=== PATIENT | female | born 1970 | race Asian ===

== ENCOUNTER 2020-03-16 13:29 | Inpatient (IN) | payer BC ==
[~2020-03-16] VITALS: Ht 152.4 cm; Wt 43.5 kg
[2020-03-16 13:45] VITALS: BP 153/83
[2020-03-16] MEDS ORDERED: HYDROmorphone 1mg/ml Carpuject IVP ONE (13:45)
[2020-03-16] MEDS ORDERED: Omnipaque-300 100ml vial INJ PRN (13:45)
--- NOTE | 2020-03-16 14:22 | Emergency Room Report ---
History of Present Illness General Chief Complaint: Abdominal Pain Source: Patient (Ender Hanna MD) Present Illness HPI Disclaimer: Please note that this report is being documented using [employer] technology. This can lead to erroneous entry secondary to incorrect interpr etation by the dictating instrument. HPI: 49-year-old male with a history of fibroids recent embolization presents for evaluation of constipation and abdominal pain. Patient underwent a uterine artery embolization on the right side [address] Manzanares. Decreased bowel movements and increased nausea and abdominal pain. She tried milk of magnesia but no effect. Denies fever or chills. Denies dysuria. Sent in by surgery for evaluation and admission. PMH: Uterine fibroids PSH: Uterine artery embolization Allergies: Reviewed Social Hx: Reviewed (Ender Hanna MD) Allergies: Coded Allergies: No Known Allergies (Unverified , 03/16/20) COVID-19 Screening Contact w/high risk pt: No Experienced COVID-19 symptoms?: No COVID-19 Testing performed RELOCATION MANAGER: No (Ender Hanna MD) Nursing Documentation-PM Past Medical History: No Stated History (Ender Hanna MD) Review of Systems All Other Systems: negative except mentioned in HPI (Ender Hanna MD) Physical Exam Vital Signs Date Time Temp Pulse Resp B/P (MAP) Pulse Ox O2 Delivery O2 Flow Rate FiO2 03/16/20 13:41 98.2 86 18 153/83 (106) 99 Room Air General: Awake and alert, appears uncomfortable HEENT: NC/AT. EOMI. Cardiovascular: RRR. S1 and S2 normal. No murmur appreciated Resp: Normal work of breathing. No cough, wheezing or crackles appreciated Abdomen: Abdomen is soft, nondistended. Tender to palpation in the lower abdomen bilaterally.. Skin: Intact. No abrasions, laceration or rash over the exposed skin MSK: Normal tone and bulk. Moving all extremities. No obvious deformity. Neuro: Awake and alert. Mentating appropriately. (Ender Hanna MD) Medical Decision Making Diagnostic Impression: Primary Impression: Post-op pain Additional Impression: Fibroid uterus Qualified Codes: D25.9 - Leiomyoma of uterus, unspecified ER Course Is a 49-year-old female presenting for evaluation of abdominal pain and constipation 3 days after uterine artery embolization. Seen for postop complication, constipation, ileus among others. Started IV fluids, kept n.p.o., given antiemetics and pain medication. Awaiting lab results and CT of the abdomen and pelvis per surgery recommendations. Patient will be admitted to Dr. Garsia at the request of her surgeon. (Ender Hanna MD) ER Course Please see above note. Lab results reviewed as well as CAT scan. Discussed results with Dr. Manzanares. Patient is admitted to the hospital. Laboratory Tests Test 03/16/20 14:45 White Blood Count 11.1 K/UL (4.8-10.8) H Red Blood Count 4.80 M/UL (4.20-5.40) Hemoglobin 13.3 G/DL (12.0-16.0) Hematocrit 38.6 % (37.0-47.0) Mean Corpuscular Volume 80 FL (80-99) Mean Corpuscular Hemoglobin 27.6 PG (27.0-31.0) Mean Corpuscular Hemoglobin Concent 34.3 G/DL (32.0-36.0) Red Cell Distribution Width 16.4 % (11.6-14.8) H Platelet Count 174 K/UL (150-450) Mean Platelet Volume 9.1 FL (6.5-10.1) Neutrophils (%) (Auto) 86.5 % (45.0-75.0) H Lymphocytes (%) (Auto) 3.2 % (20.0-45.0) L Monocytes (%) (Auto) 9.2 % (1.0-10.0) Eosinophils (%) (Auto) 0.1 % (0.0-3.0) Basophils (%) (Auto) 0.9 % (0.0-2.0) Sodium Level 138 MMOL/L (136-145) Potassium Level 4.1 MMOL/L (3.5-5.1) Chloride Level 99 MMOL/L (98-107) Carbon Dioxide Level 30 MMOL/L (21-32) Anion Gap 9 mmol/L (5-15) Blood Urea Nitrogen 8 mg/dL (7-18) Creatinine 0.7 MG/DL (0.55-1.30) Estimated Glomerular Filtration Rate > 60 mL/min (>60) Glucose Level 119 MG/DL (74-106) H Calcium Level 8.9 MG/DL (8.5-10.1) Total Bilirubin 1.2 MG/DL (0.2-1.0) H Direct Bilirubin 0.3 MG/DL (0.0-0.3) Aspartate Amino Transferase (AST) 32 U/L (15-37) Alanine Aminotransferase (ALT) 34 U/L (12-78) Alkaline Phosphatase 53 U/L (46-116) Total Protein 8.3 G/DL (6.4-8.2) H Albumin 3.8 G/DL (3.4-5.0) Globulin 4.5 g/dL Albumin/Globulin Ratio 0.8 (1.0-2.7) L Lipase 107 U/L (73-393) (Abdifatah Brush MD) CT/MRI/US Diagnostic Results CT/MRI/US Diagnostic Results : Imaging Test Ordered: abd/pelvis Impression Impression: Borderline dilated markedly diffusely fluid filled colon and distal ileum, without evidence of downstream obstructive pathology. Most likely functional in nature and possibly related to recent procedure; no evidence of obstructive pathology is demonstrated. Extensive fluid may indicate diarrheal illness Markedly enlarged fibroid uterus. Opacified dominant fibroid, necrotic appearing other fibroids are consistent with stated clinical history of uterine fibroid embolization Bilateral breast implants. Serpiginous opacities in the right implant suggest intracapsular rupture Other findings as noted, including posterior pulmonary dependent atelectatic changes, focal fatty change in the liver, hepatic cysts (Abdifatah Brush MD) Last Vital Signs Date Time Temp Pulse Resp B/P (MAP) Pulse Ox O2 Delivery O2 Flow Rate FiO2 03/16/20 13:41 98.2 86 18 153/83 (106) 99 Room Air (Ender Hanna MD) Last Vital Signs Date Time Temp Pulse Resp B/P (MAP) Pulse Ox O2 Delivery O2 Flow Rate FiO2 03/16/20 18:20 Room Air 03/16/20 17:30 98.2 70 18 124/70 99 Status: improved (Abdifatah Brush MD) Disposition: ADMITTED INPATIENT Condition: Stable Ender Hanna MD Mar 16, 2020 14:22 Abdifatah Brush MD Mar 16, 2020 17:21
[2020-03-16 15:00] LABS: HEMATOCRIT 38.6 % (37.0-47.0); HEMOGLOBIN 13.3 G/DL (12.0-16.0); LYMPHOCYTES % (AUTO) 3.2 % (20.0-45.0); MEAN CORPUSCULAR VOLUME 80 FL (80-99); MONOCYTES % (AUTO) 9.2 % (1.0-10.0); NEUTROPHILS % (AUTO) 86.5 % (45.0-75.0); PLATELET COUNT 174 K/UL (150-450); RED CELL DISTRIBUTION WIDTH 16.4 % (11.6-14.8); WHITE BLOOD COUNT 11.1 K/UL (4.8-10.8)
[2020-03-16 15:01] LABS: BASOPHILS % (AUTO) 0.9 % (0.0-2.0); EOSINOPHILS % (AUTO) 0.1 % (0.0-3.0)
[2020-03-16 15:08] LABS: ANION GAP 9 mmol/L (5-15); BLOOD UREA NITROGEN 8 mg/dL (7-18); CALCIUM 8.9 MG/DL (8.5-10.1); CARBON DIOXIDE 30 MMOL/L (21-32); CHLORIDE 99 MMOL/L (98-107); CREATININE 0.7 MG/DL (0.55-1.30); POTASSIUM 4.1 MMOL/L (3.5-5.1); SODIUM 138 MMOL/L (136-145)
[2020-03-16 15:17] LABS: ALANINE AMINOTRANSFERASE 34 U/L (12-78); ALBUMIN 3.8 G/DL (3.4-5.0); ALBUMIN/GLOBULIN RATIO 0.8 (1.0-2.7); ALKALINE PHOSPHATASE 53 U/L (46-116); ASPARTATE AMINO TRANSFERASE 32 U/L (15-37); BILIRUBIN,TOTAL 1.2 MG/DL (0.2-1.0)
[2020-03-16 15:19] LABS: BILIRUBIN,DIRECT 0.3 MG/DL (0.0-0.3)
--- NOTE | 2020-03-16 16:43 | Diagnostic Imaging Report ---
Clinical Indication: Abdominal pain, status post uterine fibroid embolization procedure Technique: No oral contrast utilized, per emergency room physician request IV administration nonionic contrast. Venous phase spiral acquisition obtained through the abdomen and pelvis. Multiplanar reconstructions were generated. Total dose length product 162 mGycm. CTDIvol(s) 3 mGy. Dose reduction achieved using automated exposure control Comparison: none Findings: Lack of enteric contrast limits assessment of the GI tract. The colon is mildly distended, diffusely fluid-filled; this appearance extends all the way to the rectum. The wall does not appear to be thickened. The distal and terminal ileum are also mildly dilated and fluid-filled; remainder of the small bowel is normal in caliber. The distal esophagus, stomach, duodenum are unremarkable. No free or loculated intraperitoneal gas or fluid is evident. The uterus is enlarged, demonstrates multiple fibroids, largest measuring 7.9 x 5.7 cm. The largest is somewhat hyperattenuating centrally, likely indicating retained contrast from the embolization procedure. Most of the rest are hypoattenuating. The liver demonstrates multiple cysts. There is some focal fatty change in the usual location adjacent to the falciform ligament. The gallbladder, bile ducts, pancreas, spleen, adrenals, kidneys are all unremarkable. No retroperitoneal or mesenteric mass or adenopathy. Included lung bases demonstrate posterior dependent atelectatic changes. There are bilateral breast implants. Serpiginous opacities are seen within the right breast implants. The bones are unremarkable. Impression: Borderline dilated markedly diffusely fluid filled colon and distal ileum, without evidence of downstream obstructive pathology. Most likely functional in nature and possibly related to recent procedure; no evidence of obstructive pathology is demonstrated. Extensive fluid may indicate diarrheal illness Markedly enlarged fibroid uterus. Opacified dominant fibroid, necrotic appearing other fibroids are consistent with stated clinical history of uterine fibroid embolization Bilateral breast implants. Serpiginous opacities in the right implant suggest intracapsular rupture Other findings as noted, including posterior pulmonary dependent atelectatic changes, focal fatty change in the liver, hepatic cysts The CT scanner at [facility] is accredited by the [place] [employer] and the scans are performed using protocols designed to limit radiation exposure to as low as reasonably achievable to attain images of sufficient resolution adequate for diagnostic evaluation.
[2020-03-16 17:30] VITALS: BP 132/75
--- NOTE | 2020-03-16 17:41 | General Surgery Progress Note ---
General Surgery-Progress Note Subjective Day of Surgery: march 14 Procedure Performed uterine fibroid embolization Symptoms: pain same, voiding well Objective Last 24 Hour Vital Signs Date Time Temp Pulse Resp B/P (MAP) Pulse Ox O2 Delivery O2 Flow Rate FiO2 03/16/20 17:30 98.0 74 18 132/75 99 Room Air 03/16/20 14:40 98.3 03/16/20 13:45 86 18 Room Air 03/16/20 13:45 98.2 18 153/83 99 Room Air 03/16/20 13:41 98.2 86 18 153/83 (106) 99 Room Air Dressing: dry Wound: clean Drains: none Cardiovascular: RSR Respiratory: clear Abdomen: soft, flat, scaphoid, tenderness, decreased bowel sounds Extremities: no edema, no tenderness, no cyanosis Laboratory Tests Test 03/16/20 14:45 White Blood Count 11.1 K/UL (4.8-10.8) H Red Blood Count 4.80 M/UL (4.20-5.40) Hemoglobin 13.3 G/DL (12.0-16.0) Hematocrit 38.6 % (37.0-47.0) Mean Corpuscular Volume 80 FL (80-99) Mean Corpuscular Hemoglobin 27.6 PG (27.0-31.0) Mean Corpuscular Hemoglobin Concent 34.3 G/DL (32.0-36.0) Red Cell Distribution Width 16.4 % (11.6-14.8) H Platelet Count 174 K/UL (150-450) Mean Platelet Volume 9.1 FL (6.5-10.1) Neutrophils (%) (Auto) 86.5 % (45.0-75.0) H Lymphocytes (%) (Auto) 3.2 % (20.0-45.0) L Monocytes (%) (Auto) 9.2 % (1.0-10.0) Eosinophils (%) (Auto) 0.1 % (0.0-3.0) Basophils (%) (Auto) 0.9 % (0.0-2.0) Sodium Level 138 MMOL/L (136-145) Potassium Level 4.1 MMOL/L (3.5-5.1) Chloride Level 99 MMOL/L (98-107) Carbon Dioxide Level 30 MMOL/L (21-32) Anion Gap 9 mmol/L (5-15) Blood Urea Nitrogen 8 mg/dL (7-18) Creatinine 0.7 MG/DL (0.55-1.30) Estimat Glomerular Filtration Rate > 60 mL/min (>60) Glucose Level 119 MG/DL (74-106) H Calcium Level 8.9 MG/DL (8.5-10.1) Total Bilirubin 1.2 MG/DL (0.2-1.0) H Direct Bilirubin 0.3 MG/DL (0.0-0.3) Aspartate Amino Transf (AST/SGOT) 32 U/L (15-37) Alanine Aminotransferase (ALT/SGPT) 34 U/L (12-78) Alkaline Phosphatase 53 U/L (46-116) Total Protein 8.3 G/DL (6.4-8.2) H Albumin 3.8 G/DL (3.4-5.0) Globulin 4.5 g/dL Albumin/Globulin Ratio 0.8 (1.0-2.7) L Lipase 107 U/L (73-393) Imaging no abscess, no bowel thickening, much stool in colon. Plan Additional Comments GI and IM consults to manage constipation Paulino Manzanares MD Mar 16, 2020 17:41
[2020-03-16] MEDS ORDERED: HYDROmorphone 1mg/ml Carpuject IVP PRN (18:15)
[2020-03-16 20:00] VITALS: BP 140/89
[2020-03-16] MEDS ORDERED: Potassium Chloride 30 MEQ in Dextrose 5%/Lactated Ringer's 1,000 ML IV SCH (20:00)
[2020-03-16] MEDS ORDERED: TRAMADOL HCL50 MG ORAL (20:28)
[2020-03-16] MEDS ORDERED: ZOFRAN ODT8 MG ORAL (20:28)
[2020-03-16] MEDS ORDERED: AUGMENTIN 875-1 EAC1 ORAL (20:28)
[2020-03-16] MEDS ORDERED: PERCOCET 5-3251 EACH ORAL (20:28)
[2020-03-16] MEDS: ceFAZolin sod 1 GM in D5W 55 ML IVPB SCH (21:50)
[2020-03-17] VITALS: BP 115/77
[2020-03-17 04:00] VITALS: BP 110/74
[2020-03-17 06:14] LABS: BASOPHILS % (AUTO) 0.7 % (0.0-2.0); EOSINOPHILS % (AUTO) 0.4 % (0.0-3.0); HEMATOCRIT 33.7 % (37.0-47.0); HEMOGLOBIN 11.2 G/DL (12.0-16.0); LYMPHOCYTES % (AUTO) 5.6 % (20.0-45.0); MEAN CORPUSCULAR VOLUME 85 FL (80-99); MONOCYTES % (AUTO) 9.1 % (1.0-10.0); NEUTROPHILS % (AUTO) 84.1 % (45.0-75.0); PLATELET COUNT 141 K/UL (150-450); RED BLOOD COUNT 3.97 M/UL (4.20-5.40); RED CELL DISTRIBUTION WIDTH 14.6 % (11.6-14.8); WHITE BLOOD COUNT 8.8 K/UL (4.8-10.8)
[2020-03-17] MEDS: ceFAZolin sod 1 GM in D5W 55 ML IVPB SCH (06:26)
[2020-03-17 07:00] LABS: ALANINE AMINOTRANSFERASE 25 U/L (12-78); ALBUMIN 2.8 G/DL (3.4-5.0); ALBUMIN/GLOBULIN RATIO 0.8 (1.0-2.7); ALKALINE PHOSPHATASE 39 U/L (46-116); ANION GAP 6 mmol/L (5-15); ASPARTATE AMINO TRANSFERASE 28 U/L (15-37); BILIRUBIN,TOTAL 1.2 MG/DL (0.2-1.0); BLOOD UREA NITROGEN 7 mg/dL (7-18); CALCIUM 7.4 MG/DL (8.5-10.1); CARBON DIOXIDE 29 MMOL/L (21-32); CHLORIDE 103 MMOL/L (98-107); CREATININE 0.6 MG/DL (0.55-1.30); POTASSIUM 3.5 MMOL/L (3.5-5.1); SODIUM 138 MMOL/L (136-145)
[2020-03-17 07:15] LABS: BILIRUBIN,DIRECT 0.2 MG/DL (0.0-0.3)
[2020-03-17 08:00] VITALS: BP 125/83
[2020-03-17] MEDS ORDERED: Tubing IV Secondary IV ONE (08:18)
--- NOTE | 2020-03-17 10:04 | History and Physical ---
History of Present Illness General Date patient seen: Mar 17, 2020 Time patient seen: 08:30 Reason for Hospitalization: Abdominal Pain Present Illness HPI 49 years old female with past medical history of uterine fibroids, status post recent ( 3 days ago) uterine artery embolization , presented for postoperative pain and constipation. She reported no bowel movement . She reported nausea and abdominal pain, no vomiting. No fever or chills. No dysuria. Upon evaluation VS were stable. She had mild leukocytosis WBC 11.1. Stable hemoglobin and hematocrit. Stable electrolytes and renal parameters. CT of the abdomen pelvis revealed borderline dilated , markedly diffused fluid- filled colon and distal ileum without evidence of downstream obstructive pathology. Most likely functional in nature , possibly related to recent procedure. No evidence of obstructive pathology was demonstrated. Markedly enlarged fibroid uterus. In emergency department patient received analgesic , antiemetic, liter of IV fluids and admitted to medical surgical floor for further management. PMH: uterine fibroids Past surgery: [place], BL breast implants Family hx: non contributory Social history: denies smoking, ETOH abuse, illicit drug use Residence: home Allergy: None Medications: reviewed Allergies: Coded Allergies: No Known Allergies (Unverified , 03/16/20) COVID-19 Screening Contact w/high risk pt: No Experienced COVID-19 symptoms?: No Medication History Scheduled Amoxicillin/Potassium Clav 875-125* (Augmentin 875-125 Tablet*), 1 TAB ORAL TWICE A DAY, (Reported) Scheduled PRN Ondansetron Odt* (Zofran Odt*), 4 MG ORAL Q6H PRN for Nausea & Vomiting, (Reported) Oxycodone/Acetaminophen 5-325* (Percocet 5-325 Mg Tablet*), 1 TAB ORAL Q4H PRN for For Pain, (Reported) Tramadol Hcl* (Ultram*), 50 MG ORAL Q4HR PRN for For Pain, (Reported) Patient History Healthcare decision maker Resuscitation status Full code Advanced Directive on File Past Medical/Surgical History Past Medical/Surgical History: (1) Fibroid uterus Review of Systems Constitutional: Reports: no symptoms Eye: Reports: no symptoms ENT: Reports: no symptoms Respiratory: Reports: no symptoms Cardiovascular: Reports: no symptoms Gastrointestinal: Reports: abdominal pain, nausea Genitourinary: Reports: other - see HPI Musculoskeletal: Reports: no symptoms Skin: Reports: no symptoms Psychiatric: Reports: no symptoms Neurological: Reports: no symptoms Endocrine: Reports: no symptoms Hematologic/Lymphatic: Reports: no symptoms Physical Exam General Appearance: WD/WN, no apparent distress, alert Lines, tubes and drains: peripheral HEENT: normocephalic, atraumatic, anicteric, mucous membranes moist, PERRL Neck: non-tender, supple Respiratory/Chest: chest wall non-tender, lungs clear, normal breath sounds, no respiratory distress, no accessory muscle use Cardiovascular/Chest: normal peripheral pulses, normal rate Abdomen: soft - mild distention, non tender. + BS x 4 guardants Extremities: normal range of motion, no calf tenderness, normal capillary refill, non-pitting Skin Exam: normal pigmentation, warm/dry Neurologic: transformation manager II-XII grossly normal, no motor/sensory deficits, alert, oriented x 3 Musculoskeletal: normal muscle bulk Last 24 Hour Vital Signs Date Time Temp Pulse Resp B/P (MAP) Pulse Ox O2 Delivery O2 Flow Rate FiO2 03/17/20 09:00 Room Air 03/17/20 08:00 100 18 125/83 (97) 98 03/17/20 04:00 98.3 90 18 110/74 (86) 97 03/17/20 00:00 98.4 85 18 115/77 (90) 97 03/16/20 21:00 Room Air 03/16/20 20:00 98.6 81 18 140/89 (106) 98 03/16/20 18:20 Room Air 03/16/20 17:30 98.2 70 18 124/70 99 Room Air 03/16/20 17:30 98.0 74 18 132/75 99 Room Air 03/16/20 14:40 98.3 03/16/20 13:45 86 18 Room Air 03/16/20 13:45 98.2 18 153/83 99 Room Air 03/16/20 13:41 98.2 86 18 153/83 (106) 99 Room Air Intake and Output 03/16/20 03/17/20 19:00 07:00 Intake Total 0 ml 250 ml Balance 0 ml 250 ml Intake Oral 0 ml 250 ml # Voids 2 # Bowel Movements 1 Laboratory Tests Test 03/16/20 14:45 03/17/20 05:11 White Blood Count 11.1 K/UL (4.8-10.8) H 8.8 K/UL (4.8-10.8) Red Blood Count 4.80 M/UL (4.20-5.40) 3.97 M/UL (4.20-5.40) L Hemoglobin 13.3 G/DL (12.0-16.0) 11.2 G/DL (12.0-16.0) L Hematocrit 38.6 % (37.0-47.0) 33.7 % (37.0-47.0) L Mean Corpuscular Volume 80 FL (80-99) 85 FL (80-99) Mean Corpuscular Hemoglobin 27.6 PG (27.0-31.0) 28.2 PG (27.0-31.0) Mean Corpuscular Hemoglobin Concent 34.3 G/DL (32.0-36.0) 33.2 G/DL (32.0-36.0) Red Cell Distribution Width 16.4 % (11.6-14.8) H 14.6 % (11.6-14.8) Platelet Count 174 K/UL (150-450) 141 K/UL (150-450) L Mean Platelet Volume 9.1 FL (6.5-10.1) 8.3 FL (6.5-10.1) Neutrophils (%) (Auto) 86.5 % (45.0-75.0) H 84.1 % (45.0-75.0) H Lymphocytes (%) (Auto) 3.2 % (20.0-45.0) L 5.6 % (20.0-45.0) L Monocytes (%) (Auto) 9.2 % (1.0-10.0) 9.1 % (1.0-10.0) Eosinophils (%) (Auto) 0.1 % (0.0-3.0) 0.4 % (0.0-3.0) Basophils (%) (Auto) 0.9 % (0.0-2.0) 0.7 % (0.0-2.0) Sodium Level 138 MMOL/L (136-145) 138 MMOL/L (136-145) Potassium Level 4.1 MMOL/L (3.5-5.1) 3.5 MMOL/L (3.5-5.1) Chloride Level 99 MMOL/L (98-107) 103 MMOL/L (98-107) Carbon Dioxide Level 30 MMOL/L (21-32) 29 MMOL/L (21-32) Anion Gap 9 mmol/L (5-15) 6 mmol/L (5-15) Blood Urea Nitrogen 8 mg/dL (7-18) 7 mg/dL (7-18) Creatinine 0.7 MG/DL (0.55-1.30) 0.6 MG/DL (0.55-1.30) Estimat Glomerular Filtration Rate > 60 mL/min (>60) > 60 mL/min (>60) Glucose Level 119 MG/DL (74-106) H 97 MG/DL (74-106) Calcium Level 8.9 MG/DL (8.5-10.1) 7.4 MG/DL (8.5-10.1) L Total Bilirubin 1.2 MG/DL (0.2-1.0) H 1.2 MG/DL (0.2-1.0) H Direct Bilirubin 0.3 MG/DL (0.0-0.3) 0.2 MG/DL (0.0-0.3) Aspartate Amino Transf (AST/SGOT) 32 U/L (15-37) 28 U/L (15-37) Alanine Aminotransferase (ALT/SGPT) 34 U/L (12-78) 25 U/L (12-78) Alkaline Phosphatase 53 U/L (46-116) 39 U/L (46-116) L Total Protein 8.3 G/DL (6.4-8.2) H 6.5 G/DL (6.4-8.2) Albumin 3.8 G/DL (3.4-5.0) 2.8 G/DL (3.4-5.0) L Globulin 4.5 g/dL 3.7 g/dL Albumin/Globulin Ratio 0.8 (1.0-2.7) L 0.8 (1.0-2.7) L Lipase 107 U/L (73-393) Height (Feet): 5 Height (Inches): 0.00 Weight (Pounds): 96 Medications Current Medications Medications (Trade) Dose Ordered Sig/Get[place]w Route PRN Reason Start Time Stop Time Status Last Admin Dose Admin Cefazolin Sodium 1 gm/Dextrose 55 ml @ 110 mls/hr Q8HR IVPB 03/16/20 22:00 03/23/20 21:59 03/17/20 06:26 Hydromorphone HCl (Dilaudid) 1 mg Q3H PRN IVP Mild Pain (Pain Scale 1-3) 03/16/20 18:15 03/23/20 18:14 03/17/20 01:52 Hydromorphone HCl (Dilaudid) 2 mg Q2H PRN IVP Severe Pain (Pain Scale 7-10) 03/16/20 18:15 03/23/20 18:14 Hydromorphone HCl (Dilaudid) 2 mg Q3H PRN IVP Moderate Pain (Pain Scale 4-6) 03/16/20 18:15 03/23/20 18:14 Iohexol (OMNIPAQUE-300 100ml) 100 ml NOW PRN INJ Radiology Procedure 03/16/20 13:45 03/18/20 13:44 Linaclotide (Linzess) 290 mcg Q24H ORAL 03/17/20 06:30 06/15/20 06:29 03/17/20 06:31 Ondansetron HCl (Zofran) 4 mg Q6H PRN IVP Nausea & Vomiting 03/16/20 18:15 04/15/20 18:14 03/17/20 01:52 Sodium Chloride 1,000 ml @ 80 mls/hr [id number] IV 03/16/20 20:15 04/15/20 20:14 03/17/20 08:45 Assessment/Plan Assessment/Plan: ASSESSMENT postoperative pain constipation s/p uterine artery embolization mild leukocytosis, lieky reactive - resolved PLAN OF CARE MS floor IVF empiric abx pain management bowel regimen a/emetic prn diet as tolerated ambulation [id number] already had 2 BM tolerates diet pain controlled prescription for bowel softener provided, since she has rest of meds at home dc plan for later today case discussed and evaluated by supervising physician Ebony Mccurdy NP Mar 17, 2020 10:04
--- NOTE | 2020-03-17 10:15 | General Progress Note ---
Subjective ROS Limited/Unobtainable: No Allergies: Coded Allergies: No Known Allergies (Unverified , 03/16/20) Objective Last 24 Hour Vital Signs Date Time Temp Pulse Resp B/P (MAP) Pulse Ox O2 Delivery O2 Flow Rate FiO2 03/17/20 09:00 Room Air 03/17/20 08:00 100 18 125/83 (97) 98 03/17/20 04:00 98.3 90 18 110/74 (86) 97 03/17/20 00:00 98.4 85 18 115/77 (90) 97 03/16/20 21:00 Room Air 03/16/20 20:00 98.6 81 18 140/89 (106) 98 03/16/20 18:20 Room Air 03/16/20 17:30 98.2 70 18 124/70 99 Room Air 03/16/20 17:30 98.0 74 18 132/75 99 Room Air 03/16/20 14:40 98.3 03/16/20 13:45 86 18 Room Air 03/16/20 13:45 98.2 18 153/83 99 Room Air 03/16/20 13:41 98.2 86 18 153/83 (106) 99 Room Air Intake and Output 03/16/20 03/17/20 19:00 07:00 Intake Total 0 ml 250 ml Balance 0 ml 250 ml Intake Oral 0 ml 250 ml # Voids 2 # Bowel Movements 1 Laboratory Tests 03/16/20 14:45: White Blood Count 11.1H, Red Blood Count 4.80, Hemoglobin 13.3, Hematocrit 38.6, Mean Corpuscular Volume 80, Mean Corpuscular Hemoglobin 27.6, Mean Corpuscular Hemoglobin Concent 34.3, Red Cell Distribution Width 16.4H, Platelet Count 174, Mean Platelet Volume 9.1, Neutrophils (%) (Auto) 86.5H, Lymphocytes (%) (Auto) 3.2L, Monocytes (%) (Auto) 9.2, Eosinophils (%) (Auto) 0.1, Basophils (%) (Auto) 0.9, Sodium Level 138, Potassium Level 4.1, Chloride Level 99, Carbon Dioxide Level 30, Anion Gap 9, Blood Urea Nitrogen 8, Creatinine 0.7, Estimat Glomerular Filtration Rate > 60, Glucose Level 119H, Calcium Level 8.9, Total Bilirubin 1.2H, Direct Bilirubin 0.3, Aspartate Amino Transf (AST/SGOT) 32, Alanine Aminotransferase (ALT/SGPT) 34, Alkaline Phosphatase 53, Total Protein 8.3H, Albumin 3.8, Globulin 4.5, Albumin/Globulin Ratio 0.8L, Lipase 107 03/17/20 05:11: White Blood Count 8.8, Red Blood Count 3.97L, Hemoglobin 11.2L, Hematocrit 33.7L , Mean Corpuscular Volume 85, Mean Corpuscular Hemoglobin 28.2, Mean Corpuscular Hemoglobin Concent 33.2, Red Cell Distribution Width 14.6, Platelet Count 141L, Mean Platelet Volume 8.3, Neutrophils (%) (Auto) 84.1H, Lymphocytes (%) (Auto) 5.6L, Monocytes (%) (Auto) 9.1, Eosinophils (%) (Auto) 0.4, Basophils (%) (Auto) 0.7, Sodium Level 138, Potassium Level 3.5, Chloride Level 103, Carbon Dioxide Level 29, Anion Gap 6, Blood Urea Nitrogen 7, Creatinine 0.6, Estimat Glomerular Filtration Rate > 60, Glucose Level 97, Calcium Level 7.4L, Total Bilirubin 1.2H , Direct Bilirubin 0.2, Aspartate Amino Transf (AST/SGOT) 28, Alanine Aminotransferase (ALT/SGPT) 25, Alkaline Phosphatase 39L, Total Protein 6.5, Albumin 2.8L, Globulin 3.7, Albumin/Globulin Ratio 0.8L Height (Feet): 5 Height (Inches): 0.00 Weight (Pounds): 96 General Appearance: no apparent distress EENT: normal ENT inspection Neck: supple Cardiovascular: normal rate Respiratory/Chest: decreased breath sounds Abdomen: normal bowel sounds, non tender, soft Extremities: non-tender Assessment/Plan Problem List: (1) Fibroid uterus ICD Codes: D25.9 - Leiomyoma of uterus, unspecified SNOMED: [id number] Qualifiers: Qualified Codes: D25.9 - Leiomyoma of uterus, unspecified Assessment/Plan: good BM pain has improved patient is going home today Larry Spangler MD Mar 17, 2020 10:15
--- NOTE | 2020-03-17 10:36 | General Surgery Progress Note ---
General Surgery-Progress Note Subjective Procedure Performed uterine fibroid embolization Symptoms: improved, tolerating diet, voiding well, passing flatus, BM, pain decreased Objective Last 24 Hour Vital Signs Date Time Temp Pulse Resp B/P (MAP) Pulse Ox O2 Delivery O2 Flow Rate FiO2 03/17/20 09:00 Room Air 03/17/20 08:00 100 18 125/83 (97) 98 03/17/20 04:00 98.3 90 18 110/74 (86) 97 03/17/20 00:00 98.4 85 18 115/77 (90) 97 03/16/20 21:00 Room Air 03/16/20 20:00 98.6 81 18 140/89 (106) 98 03/16/20 18:20 Room Air 03/16/20 17:30 98.2 70 18 124/70 99 Room Air 03/16/20 17:30 98.0 74 18 132/75 99 Room Air 03/16/20 14:40 98.3 03/16/20 13:45 86 18 Room Air 03/16/20 13:45 98.2 18 153/83 99 Room Air 03/16/20 13:41 98.2 86 18 153/83 (106) 99 Room Air I&O Intake and Output 03/16/20 03/17/20 19:00 07:00 Intake Total 0 ml 250 ml Balance 0 ml 250 ml Intake Oral 0 ml 250 ml # Voids 2 # Bowel Movements 1 Dressing: dry Wound: clean Drains: none Cardiovascular: RSR Respiratory: clear Abdomen: soft, flat, scaphoid, present bowel sounds Extremities: no edema, no tenderness, no cyanosis Laboratory Tests Test 03/16/20 14:45 03/17/20 05:11 White Blood Count 11.1 K/UL (4.8-10.8) H 8.8 K/UL (4.8-10.8) Red Blood Count 4.80 M/UL (4.20-5.40) 3.97 M/UL (4.20-5.40) L Hemoglobin 13.3 G/DL (12.0-16.0) 11.2 G/DL (12.0-16.0) L Hematocrit 38.6 % (37.0-47.0) 33.7 % (37.0-47.0) L Mean Corpuscular Volume 80 FL (80-99) 85 FL (80-99) Mean Corpuscular Hemoglobin 27.6 PG (27.0-31.0) 28.2 PG (27.0-31.0) Mean Corpuscular Hemoglobin Concent 34.3 G/DL (32.0-36.0) 33.2 G/DL (32.0-36.0) Red Cell Distribution Width 16.4 % (11.6-14.8) H 14.6 % (11.6-14.8) Platelet Count 174 K/UL (150-450) 141 K/UL (150-450) L Mean Platelet Volume 9.1 FL (6.5-10.1) 8.3 FL (6.5-10.1) Neutrophils (%) (Auto) 86.5 % (45.0-75.0) H 84.1 % (45.0-75.0) H Lymphocytes (%) (Auto) 3.2 % (20.0-45.0) L 5.6 % (20.0-45.0) L Monocytes (%) (Auto) 9.2 % (1.0-10.0) 9.1 % (1.0-10.0) Eosinophils (%) (Auto) 0.1 % (0.0-3.0) 0.4 % (0.0-3.0) Basophils (%) (Auto) 0.9 % (0.0-2.0) 0.7 % (0.0-2.0) Sodium Level 138 MMOL/L (136-145) 138 MMOL/L (136-145) Potassium Level 4.1 MMOL/L (3.5-5.1) 3.5 MMOL/L (3.5-5.1) Chloride Level 99 MMOL/L (98-107) 103 MMOL/L (98-107) Carbon Dioxide Level 30 MMOL/L (21-32) 29 MMOL/L (21-32) Anion Gap 9 mmol/L (5-15) 6 mmol/L (5-15) Blood Urea Nitrogen 8 mg/dL (7-18) 7 mg/dL (7-18) Creatinine 0.7 MG/DL (0.55-1.30) 0.6 MG/DL (0.55-1.30) Estimat Glomerular Filtration Rate > 60 mL/min (>60) > 60 mL/min (>60) Glucose Level 119 MG/DL (74-106) H 97 MG/DL (74-106) Calcium Level 8.9 MG/DL (8.5-10.1) 7.4 MG/DL (8.5-10.1) L Total Bilirubin 1.2 MG/DL (0.2-1.0) H 1.2 MG/DL (0.2-1.0) H Direct Bilirubin 0.3 MG/DL (0.0-0.3) 0.2 MG/DL (0.0-0.3) Aspartate Amino Transf (AST/SGOT) 32 U/L (15-37) 28 U/L (15-37) Alanine Aminotransferase (ALT/SGPT) 34 U/L (12-78) 25 U/L (12-78) Alkaline Phosphatase 53 U/L (46-116) 39 U/L (46-116) L Total Protein 8.3 G/DL (6.4-8.2) H 6.5 G/DL (6.4-8.2) Albumin 3.8 G/DL (3.4-5.0) 2.8 G/DL (3.4-5.0) L Globulin 4.5 g/dL 3.7 g/dL Albumin/Globulin Ratio 0.8 (1.0-2.7) L 0.8 (1.0-2.7) L Lipase 107 U/L (73-393) Plan Additional Comments + BM pain relieved, discharge home. FU one week Paulino Manzanares MD Mar 17, 2020 10:36
--- NOTE | 2020-03-20 08:49 | Discharge Summary ---
Discharge Summary Discharge Summary _ DATE OF ADMISSION: 03/16/2020 DATE OF DISCHARGE: 03/17/2020 DISCHARGED BY: Dr. Garsia REASON FOR ADMISSION: 49 years old female with past medical history of uterine fibroids, status post recently, 3 days ago, uterine artery embolization presented for postoperative pain and constipation. Upon evaluation she had mild leukocytosis WBC 11.1. Stable hemoglobin and hematocrit, electrolytes, and renal parameters. CT of the abdomen and pelvis revealed borderline dilated, markedly diffused fluid-filled colon and distal ileum without evidence of downstream obstructive pathology. Most likely functional in nature, possibly related to recent procedure. In emergency department patient received analgesic, antiemetic, 1 L of IV fluids and admitted to medical surgical floor for further management. CONSULTANTS: surgery Dr. Manzanares [facility] COURSE: Patient admitted to medical surgical floor. Patient started on IV fluids and empiric antibiotic. Pain management was addressed. Bowel regimen instituted. Antiemetic were on board as needed. Diet provided as tolerated. Ambulation was encouraged. Pain was controlled. Patient had repeated bowel movement. Patient was able to tolerate diet. Mild leukocytosis was likely reactive , and resolved the next day. Patient clinically stabilized and was ready for discharge. Due to rapid and unexpected improvement patient condition, patient was discharged in 1 day. FINAL DIAGNOSES: Postoperative pain Constipation Status post uterine artery embolization Mild leukocytosis, likely reactive -resolved DISCHARGE MEDICATIONS: See Medication Reconciliation list. DISCHARGE INSTRUCTIONS: Patient was discharged home. Follow-up with a surgeon as advised. Ebony Mccurdy NP Mar 20, 2020 08:49
== END 2020-03-17 10:30 | disposition home or self-care (01) | DRG 948 ==
LOC: EMR 13:50 → EDBEDREQ 14:55 → 3E 14:55
DX: G89.18 Other acute postprocedural pain (principal); D25.9 Leiomyoma of uterus, unspecified; K59.00 Constipation, unspecified
CPT/HCPCS: 36415; 74177; 80053; 82248; 83690; 85025; 96361; 96374; 96375; 99285; J2405; J7030